=== PATIENT | male | born 1945 | race Caucasian/White ===

== ENCOUNTER → 2019-05-15 | Outpatient (CLI) | payer BC, MEDICARE ==
--- NOTE | 2019-05-19 19:07 | SLEEPHOME ---
DATE OF PROCEDURE: 05/15/2019 ORDERED BY: Neelima Montelongo Diagnostic home sleep testing was performed due to concern for the obstructive sleep apnea syndrome. For testing a nocturnal T3 respiratory monitoring device was used. Continuous record was made of pulse, oxygen saturation, airflow, chest, abdominal strain and body position. 9 hours and 59 minutes of data were reviewed. There were 8 hours and 2 minutes marked as time in bed. During the interval marked time in bed, there were 45 respiratory events identified of 10 seconds in duration or greater for a respiratory event index of 5.6. The events were not exclusive to body posture. They were primarily obstructive. Baseline pulse rate and saturation were unable to be reported as the meter became dislodged early in the test. Testing was performed in both the supine and nonsupine positions. IMPRESSION: Abnormal home sleep testing with repetitive respiratory events and a respiratory event index of 5.6 is consistent with the obstructive sleep apnea syndrome. RECOMMENDATIONS: The patient should be encouraged to undergo a formal sleep evaluation.
== END ==
LOC: M SLEEP HO 10:50
PROVIDERS: ATTEND Nurse Practitioner Family
DX: R06.83 Snoring (principal)